=== PATIENT | male | born 1990 | race Caucasian/White ===

== ENCOUNTER 2017-04-12 15:50 | Emergency (ER) | payer MEDICAID ==
--- NOTE | 2017-04-12 16:32 | ED Physician Chart ---
Chief Complaint/HPI - Patient Information Date Seen:: 04/12/17 Time Seen:: 16:08 Chief Complaint:: sore throat History of Present Illness:: this is a 26yo male with a sore throat, fever and body aches without vomiting and diarrhea. the patient denies cough and sputum but is concerned about body aches. he denies chronic diseases. Allergies:: Allergies Allergy/AdvReac Type Severity Reaction Status Date / Time No Known Allergies Allergy Verified 03/27/16 07:01 Vitals:: Vital Signs - 8 hr 04/12/17 16:01 Temp 98.2 F HR 97 RR 18 BP 142/90 O2 Sat % 99 Historian:: Patient Review:: Nurse's Note Reviewed Review of Systems - Review of Systems General/Constitutional: No fever, No chills, No weight loss, No weakness, No diaphoresis, No edema, No loss of appetite Skin: No skin lesions, No rash, No bruising Head: No headache, No light-headedness Eyes: No loss of vision, No pain, No diplopia ENT: No earache, No nasal drainage, Sore throat, No tinnitus Neck: No neck pain, No swelling, No thyromegaly, No stiffness, No mass noted Cardio Vascular: No chest pain, No palpitations, No PND, No orthopnea, No edema Pulmonary: No SOB, No cough, No sputum, No wheezing GI: No nausea, No vomiting, No diarrhea, No pain, No melena, No hematochezia, No constipation, No hematemesis G/U: No dysuria, No frequency, No hematuria Musculoskeletal: No bone or joint pain, No back pain, Muscle pain Endocrine: No polyuria, No polydipsia Psychiatric: No prior psych history, No depression, No anxiety, No suicidal ideation Hematopoietic: No bruising, No lymphadenopathy Allergic/Immuno: No urticaria, No angioedema Neurological: No syncope, No focal symptoms, No weakness, No paresthesia, No headache, No seizure, No dizziness, No confusion, No vertigo Past Medical History - Past Medical History Obtainable: Yes Past Medical History: No significant medical hx Family History: None Social History: Non Smoker, No Alcohol, No Drug Use Family Medical History - Family Member Mother History Unknown: Yes Physical Exam - Physical Examination General/Constitutional: Awake, Well-developed, well-nourished, Alert, No distress, GCS 15, Non-toxic appearing, Ambulatory Head: Atraumatic Eyes: Lids, conjuctiva normal, PERRL, EOMI Skin: Nl inspection, No rash, No skin lesions, No ecchymosis, Well hydrated, No lymphadenopathy ENMT: External ears, nose nl, Nasal exam nl, Lips, teeth, gums nl, Oropharynx nl (throat is red, swollen and tender.) Neck: Nontender, Full ROM w/o pain, No JVD, No nuchal rigidity, No bruit, No mass, No stridor Respiratory: Nl effort/Exclusion, Clear to Auscultation, No Wheeze/Rhonchi/Rales Cardio Vascular: RRR, No murmur, gallop, rubs, NL S1 S2 GI: No tenderness/rebounding/guarding, No organomegaly, No hernia, Normal BS's, Nondistended, No mass/bruits, No McBurney tenderness : No CVA tenderness Extremities: No tenderness or effusion, Full ROM, normal strength in all extremities, No edema, Normal digits & nails Neuro/Psych: Alert/oriented, DTR's symmetric, Normal sensory exam, Normal motor strength, Judgement/insight normal, Mood normal, Normal gait, No focal deficits Misc: normal gait, Normal back, No paraspinal tenderness Assessment - Assessment General Assessment: acute pharyngitis ED Septic Shock - . Is Septic Shock (SBP<90, OR Lactate>4 mmol\L) present?: No - <6hrs of presentation: Vital Signs: Vital Signs - 8 hr //17 16:01 Temp 98.2 F HR 97 RR 18 BP 142/90 O2 Sat % 99 Reassessment (Disposition) - Diagnosis Diagnosis:: acute pharyngitis - Aftercare/Follow up Instructions Aftercare/Follow-Up Instructions:: Counseled pt regarding lab results/diagnosis & need follow up, Refer to Discharge Instructions, Counseled pt & family regarding lab results/diagnosis & need follow up - Patient Disposition Discharge/Transfer:: Home Condition at Disposition:: Improved ED Discharge Plan - Patient Disposition Admit/Discharge/Transfer: PT DISCHARGED HOME Condition at Disposition: Unchanged
== END 2017-04-12 17:15 | disposition home or self-care (01) ==
LOC: ER 15:50
DX: J02.9 Acute pharyngitis, unspecified (principal)
CPT/HCPCS: 99283; 96372; J0696; Z7502

== ENCOUNTER 2017-09-27 07:34 | Emergency (ER) | payer MEDICAID ==
[2017-09-27] MEDS ORDERED: metroNIDAZOLE 500mg/NS 100mL 500 MG/100 ML BAG IV ONE (09:43)
[2017-09-27] MEDS ORDERED: Diphenoxylate/Atropine 2.5mg Tab PO STA (09:45)
--- NOTE | 2017-09-27 11:40 | ER Physician Documentation ---
DATE OF SERVICE: 09/27/2017 HISTORY: The patient is the of , they both were put on bed 6. I examined them both and history was taken. The patient is having for 2 days, nausea and diarrhea and otherwise generalized bloating sensations and no other significant complaints. The patient has no other medical problems. Vital signs were done by the paramedics by the triage nurse showing temperature 98.6, pulse of 127, respirations 18, blood pressure 111/69, saturation 96%, height 5 feet 3 inches, weight 264 pound. Full code. Allergies is none known. Pain is 9/10, but to me he was very comfortable and while I am dictating, I am given the message that the patient is going to sign against medical advice. They do not want any blood drawn or other things to be done, he just wants to go home. Review of systems is essentially benign and negative. No other history of any significant surgery admissions, etc. A few years ago he was admitted, he does not know for what medical condition that he was admitted, but nothing serious. FAMILY HISTORY: Benign and negative. PHYSICAL EXAMINATION: GENERAL: The patient appears to be awake and alert, oriented, not in any acute cardiorespiratory distress. CHEST: Clear. Trachea being central. Fairly good air entry in both lungs. ABDOMEN: Obese, otherwise soft, benign and negative. CENTRAL NERVOUS SYSTEM: Within normal limits. CLINICAL IMPRESSION: The patient has abdominal pain, nausea and diarrhea. The patient was given in the Emergency Room Cipro and Flagyl and Lomotil has been ordered, I am not sure whether they took this medication or not and they are signing against medical advice. All the risks, complications, alternatives of signing against medical advice, risks including were also explained to the patient and understood by them, but I was told that they will be signing against medical advice and we will wish the patient all the best and if they change their mind, our Emergency Room is open. We will be happy to take care of the patient as needed. Otherwise, the patient needs a stool workup etc. All the lab workup has been ordered, but he does not want anything to be done. So, I am very sorry to let you know. JOB# [id number]
== END 2017-09-27 10:40 | disposition left against medical advice (07) ==
LOC: ER 07:34
DX: R19.7 Diarrhea, unspecified (principal); R11.0 Nausea; R10.9 Unspecified abdominal pain
CPT/HCPCS: Z7502

== ENCOUNTER 2019-01-27 22:17 | Emergency (ER) | payer MEDICAID ==
--- NOTE | 2019-01-27 23:33 | ED Physician Chart ---
ED Chief Complaint/HPI - Patient Information Date Seen:: 01/27/19 Time Seen:: 23:29 Chief Complaint:: cough sinus congestion History of Present Illness:: 28 yr old male with cough sinus congestion for last few days no nvdc Allergies:: Allergies Allergy/AdvReac Type Severity Reaction Status Date / Time No Known Allergies Allergy Verified 01/27/19 22:21 Vitals:: Vital Signs - 8 hr 01/27/19 22:20 Temp 98.2 F HR 92 RR 20 BP 125/88 O2 Sat % 98 ED Review of Systems - Review of Systems General/Constitutional: No fever, No chills, No weight loss, No weakness, No diaphoresis, No edema, No loss of appetite Skin: No skin lesions, No rash, No bruising Head: No headache, No light-headedness Eyes: No loss of vision, No pain, No diplopia ENT: No earache, No nasal drainage, No sore throat, No tinnitus Neck: No neck pain, No swelling, No thyromegaly, No stiffness, No mass noted Cardio Vascular: No chest pain, No palpitations, No PND, No orthopnea, No edema Pulmonary: No SOB, No cough, No sputum, No wheezing GI: No nausea, No vomiting, No diarrhea, No pain, No melena, No hematochezia, No constipation, No hematemesis G/U: No dysuria, No frequency, No hematuria Musculoskeletal: No bone or joint pain, No back pain, No muscle pain Endocrine: No polyuria, No polydipsia Psychiatric: No prior psych history, No depression, No anxiety, No suicidal ideation Hematopoietic: No bruising, No lymphadenopathy Allergic/Immuno: No urticaria, No angioedema Neurological: No syncope, No focal symptoms, No weakness, No paresthesia, No headache, No seizure, No dizziness, No confusion, No vertigo ED Past Medical History - Past Medical History Past Medical History: No significant medical hx Family Medical History - Family Member Mother History Unknown: Yes ED Physical Exam - Physical Examination General/Constitutional: Awake, Well-developed, well-nourished, Alert, No distress, GCS 15, Non-toxic appearing, Ambulatory Head: Atraumatic Eyes: Lids, conjuctiva normal, PERRL, EOMI Skin: Nl inspection, No rash, No skin lesions, No ecchymosis, Well hydrated, No lymphadenopathy ENMT: External ears, nose nl, Nasal exam nl, Lips, teeth, gums nl Neck: Nontender, Full ROM w/o pain, No JVD, No nuchal rigidity, No bruit, No mass, No stridor Respiratory: Nl effort/Exclusion, Clear to Auscultation, No Wheeze/Rhonchi/Rales Cardio Vascular: RRR, No murmur, gallop, rubs, NL S1 S2 GI: No tenderness/rebounding/guarding, No organomegaly, No hernia, Normal BS's, Nondistended, No mass/bruits, No McBurney tenderness : No CVA tenderness Extremities: No tenderness or effusion, Full ROM, normal strength in all extremities, No edema, Normal digits & nails Neuro/Psych: Alert/oriented, DTR's symmetric, Normal sensory exam, Normal motor strength, Judgement/insight normal, Mood normal, Normal gait, No focal deficits Misc: Normal back, No paraspinal tenderness ED Assessment - Assessment General Assessment: sinusitis ED Septic Shock - . Is Septic Shock (SBP<90, OR Lactate>4 mmol\L) present?: No - <6hrs of presentation: Vital Signs: Vital Signs - 8 hr 01/27/19 22:20 Temp 98.2 F HR 92 RR 20 BP 125/88 O2 Sat % 98 ED Reassessment (Disposition) - Reassessment Reassessment:: sinusitis - Diagnosis Diagnosis:: as above - Aftercare/Follow up Instructions Medication Prescribed:: keflex - Patient Disposition Discharge/Transfer:: Home Condition at Disposition:: Stable
== END 2019-01-28 | disposition home or self-care (01) ==
LOC: ER 22:17
DX: J32.9 Chronic sinusitis, unspecified (principal)
CPT/HCPCS: Z7502